=== PATIENT | female | born 1990 | race Two or more races ===

== ENCOUNTER → 2019-02-09 | Outpatient (CLI) | payer BC ==
--- NOTE | 2019-02-09 15:14 | RAD ---
PREG MORE THAN OR EQ TO 14 WKS History: Uterine size date discrepancy Comparison: None. Findings: Multiple sonographic images of the uterus are submitted. Cervix measured 6 cm. There is single intrauterine fetus in cephalic presentation. Amniotic fluid volume is subjectively within normal limits. There is posterior placenta. Submitted four-chamber view of the heart is nondiagnostic due to obliquity. heart rate was 137 bpm. 2 kidneys were visualized. There is no obvious abnormality of the visualized spine. 2 upper and lower extremities were visualized. bladder was visualized. Submitted image of three-vessel cord is not diagnostic, no color images. No abnormality is demonstrated of the visualized brain. Cisterna magna measures 0.31 cm. Cerebellum measured 2.11 cm. Biometry data are as follows: Biparietal diameter 4.51 cm corresponds 19 weeks 4 days Head circumference 17.17 cm corresponds with 19 weeks 5 days Abdominal circumference 14.35 cm corresponds with 19 weeks 5 days Femur length 3.34 cm corresponds with 20 weeks 3 days. HC/AC ratio within normal limits 1.20 Adjusted ultrasound age 19 weeks 6 days with estimated delivery date by ultrasound of 06/30/2019. LMP age 20 weeks 4 days with estimated delivery date of 06/25/2019. Estimated weight 326 g +/- 48 g. Impression: 1. There is a single viable intrauterine fetus in cephalic presentation, adjusted ultrasound age 19 weeks 6 days with estimated delivery date by ultrasound of 06/30/2019. 2. While no anatomic abnormality is demonstrated, images of the four-chamber view of the heart and three-vessel cord are not considered diagnostic. Electronically signed by: Joel Forbes MD (02/09/2019 3:11 PM) [place] [id number]
== END | disposition home or self-care (01) ==
LOC: US 15:53
PROVIDERS: ATTEND Obstetrics & Gynecology
DX: O26.842 Uterine size-date discrepancy, second trimester (principal); Z3A.19 19 weeks gestation of pregnancy
CPT/HCPCS: 76805